=== PATIENT | male | born 1955 | race Caucasian/White ===

== ENCOUNTER 2020-03-22 07:26 | Observation (INO) ==
[~2020-03-22 07:26] MED LIST: Buffered Lidocaine 1% SYRIN 1 ml INTRADERM ONE; Lactated Ringers 1000 ml BAG 1,000 ML IV SCH
[2020-03-22] MEDS ORDERED: ROPIVACAINE 5 MG/ML 30 ML BTL (0.5%) ONE ×2 (07:27→09:58)
[2020-03-22] MEDS ORDERED: fentaNYL 100 mcg/2 ml 50 MCG/ML VIAL ONE (07:58)
[2020-03-22] MEDS ORDERED: Midazolam 2 mg/2 ml VIAL 1 mg/ml 2 ml VIAL (2 mg) ONE (07:58)
[2020-03-22] MEDS ORDERED: ceFAZolin 2 GM PREMIX 2 GM/50 ML BAG ONE (08:10)
[2020-03-22] MEDS ORDERED: Propofol 10 MG/ML 20 ML BTL ONE (09:41)
[2020-03-22] MEDS ORDERED: Ondansetron ODT 4 mg TAB 4 MG TAB PO PRN ×2 (09:50→10:56)
[2020-03-22] MEDS ORDERED: diPHENhydraMINE IV 50 MG/ML 1 ml VIAL (BENADRYL) IV PRN ×2 (09:50→10:56)
[2020-03-22] MEDS ORDERED: fentaNYL 100 mcg/2 ml 50 MCG/ML VIAL IV PRN (09:50)
[2020-03-22] MEDS ORDERED: Naloxone 0.4 mg VIAL 0.4 mg/ml 1 ml VIAL IV PRN (09:50)
[2020-03-22] MEDS ORDERED: Dexmedetomidine 200 mcg/2 ml 2 ml VIAL (200 mcg) ONE (09:58)
[2020-03-22] MEDS ORDERED: Dexamethasone IV 4 MG/ML VIAL 1 ml VIAL ONE (09:58)
[2020-03-22] MEDS ORDERED: Acetaminophen IV 1 GM/100ML 100 ML ONE (10:24)
[2020-03-22] MEDS ORDERED: Morphine 2 MG/ML SYRINGE IV PRN (10:56)
[2020-03-22] MEDS ORDERED: oxyCODONE/Acetamin 5/325 mg TAB PO PRN (10:56)
[2020-03-22] MEDS ORDERED: diPHENhydraMINE 25 mg TAB PO PRN (10:56)
[2020-03-22] MEDS ORDERED: Lactulose 30 ml UDC PO PRN (10:56)
[2020-03-22] MEDS ORDERED: Ondansetron 4 mg VIAL 2 MG/ML 2 ml VIAL IV PRN (10:56)
[2020-03-22] MEDS ORDERED: Magnesium Hydroxide LIQ 30 ML UDC PO PRN (10:56)
[2020-03-22] MEDS ORDERED: Polyethylene Glycol 3350 17 GM PACKET PO PRN (11:02)
[2020-03-22] MEDS ORDERED: Triamcinolone 0.5% OINT 1 TUBE TOPICAL PRN (11:04)
[2020-03-22] MEDS: oxyCODONE/Acetamin 5/325 mg TAB PO PRN ×2 (13:45→21:40)
[2020-03-22] MEDS: Lactated Ringers 1000 ml BAG 1,000 ML IV SCH ×2 (13:55→22:40)
[2020-03-22] MEDS: ceFAZolin 1 GM ADVAN 1 GM in NS 0.9% 50 ML 50 ML IVPB SCH (16:34)
[2020-03-22] MEDS: Magnesium Hydroxide LIQ 30 ML UDC PO SCH (21:40)
[2020-03-23] MEDS: ceFAZolin 1 GM ADVAN 1 GM in NS 0.9% 50 ML 50 ML IVPB SCH ×2 (00:56→09:42)
[2020-03-23] MEDS ORDERED: NS 0.9% 500 ml BAG 500 ML IV ONE (01:53)
[2020-03-23 05:32] LABS: Hematocrit 32 % (42-52); Mean Platelet Volume 8.2 fL (7.4-10.4); Platelet Count 135 10^3/uL (150-450)
[2020-03-23 05:47] LABS: BUN/Creatinine Ratio 19.4 (8-20); Calcium 8.1 mg/dL (8.6-10.3); EGFR African American 143.6 (>60); EGFR Non-African American 118.7 (>60); Potassium 4.1 mmol/L (3.5-5.0)
[2020-03-23] MEDS ORDERED: Vitamin THERAPEUTIC TAB PO SCH (09:00)
[2020-03-23] MEDS: Magnesium Hydroxide LIQ 30 ML UDC PO SCH (09:43)
[2020-03-23 11:54] VITALS: BP 129/65
== END 2020-03-23 14:13 | disposition home or self-care (01) ==
LOC: OR 07:26 → SSU 07:26
PROVIDERS: ADMIT Orthopaedic Surgery Adult Reconstructive Orthopaedic Surgery; ATTEND Orthopaedic Surgery Adult Reconstructive Orthopaedic Surgery